=== PATIENT | male | born 1950 | race Caucasian/White ===

== ENCOUNTER 2017-03-26 08:55 | Emergency (ER) | payer MEDICARE, BC, OTHER ==
[~2017-03-26 08:55] MED LIST: ASPI-482 PO; CHOL10002 PO; INSU100I13 SQ; INSU100I17 SQ; ISOS30TA PO; ISOS60TA2 PO; LIPITOR80 MG PO; METO25TA9 PO; PANT40TA3 PO; RANO500T2 PO
[2017-03-26 09:03] VITALS: BP 174/92
[2017-03-26] MEDS: DIPHTH,PERTUSS(ACELL),TET TOX 0.5 ML DISP.SYRIN. VAX IM ONE (09:16)
--- NOTE | 2017-03-26 09:16 | PHYS DOC ---
General Chief Complaint: LACERATION/AVULSION Stated Complaint: LACERATION LFT THUMB Time Seen by MD: 09:03 Source: patient Exam Limitations: no limitations Problems: History of Present Illness Initial Comments Pt is 66/M to ED c/o left thumb laceration. 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 Bled profusely initially, stopped with pressure on ED arrival. No numbness/tingling/ weakness/radiating sx, full motion of affected thumb. Td status unknown. Pain controlled. Onset: just prior to arrival Severity: mild Pain/Injury Location: left thumb Method of Injury: incised Modifying Factors: worse with jarring, worse with movement, improves with rest Allergies: Coded Allergies: No Known Drug Allergies (Unverified , 06/24/14) Past Medical History Medical History: diabetes, heart disease Surgical History: noncontributory (stents) Social History Smoker: non-smoker Alcohol: none Drugs: none Review of Systems Constitutional: denies chills, denies fever Respiratory: denies cough, denies shortness of breath Cardiovascular: denies chest pain, denies palpitations Gastrointestinal: denies nausea, denies vomiting Musculoskeletal: see HPI Skin: see HPI Psychiatric/Neurological: see HPI Physical Exam General Appearance: WD/WN, no apparent distress HEENT: normal ENT inspection Neck: non-tender, supple Cardiovascular/Respiratory: normal peripheral pulses, no respiratory distress Hand: soft tissue tenderness (L Thumb: dorsal aspect proximal phalanx 1cm superficial clean linear laceration with edges approximated but do separate with thumb flexion. Ligs/tendons intact digit is NV intact) Neurologic/Tendon: normal sensation, normal motor functions, normal tendon functions, responds to pain, no evidence tendon injury Psychiatric: alert, oriented x 3 Skin: warm/dry (thumb lac as above) Laceration/Wound Repair Laceration/Wound Repair : Wound Location: upper extremity (L thumb) Wound's Depth, Shape: superficial, linear Wound Length (cm): 1 Wound Explored: clean Irrigated w/ Saline (ccs): 250 Betadine Prep?: Yes Wound Repaired With: Dermabond Sterile Dressing Applied?: Yes Splint Applied?: Yes Type of Splint Applied: metal finger Progress Wound cleansed by RN. After drying, edges approximated with tissue adhesive good result. Sterile dressing/metal finger splint applied. Tolerated well no complications. See departure for wound care. Departure Time of Disposition: 09:13 Disposition: 01 HOME, SELF-CARE Diagnosis: Thumb Laceration Condition: IMPROVED Patient Instructions: Tissue Adhesive Wound Care, VIS, Tetanus, Diphtheria (Td) ; Tetanus, Diphtheria, Pertussis (Tdap) - CDC Additional Instructions: Keep wound dry for 48 hours. Keep covered with sterile dressing until completely healed. After 48 hours wash briefly with soap and warm water twice daily, change dressing. Use metal finger splint for at least the first 5 days to keep thumb immobilized and prevent wound dehiscence. Follow up with a doctor next week as needed. Return to ED with new or changing symptoms. PATTIE MARTINI DO March 26, 2017 09:16
== END 2017-03-26 09:36 | disposition home or self-care (01) ==
LOC: ER 08:55
DX: S61.012A Laceration without foreign body of left thumb without damage to nail, initial encounter (principal); W34.09XA Accidental discharge from other specified firearms, initial encounter; Y93.89 Activity, other specified; Y99.8 Other external cause status; Y92.89 Other specified places as the place of occurrence of the external cause; E11.9 Type 2 diabetes mellitus without complications
CPT/HCPCS: 12001; 90471; 90715; 99283-25

== ENCOUNTER → 2017-06-26 | Outpatient (CLI) | payer MEDICARE, BC, OTHER ==
[2017-06-26 13:24] LABS: ALBUMIN 2.8 g/dL (3.4-5.0); ALBUMIN/GLOBULIN RATIO 0.6 (1.0-1.7); CALCIUM 8.4 mg/dL (8.5-10.1); CREATININE 1.8 mg/dL (0.7-1.3); GFR 37.8; POTASSIUM 4.8 mmol/L (3.5-5.1); TOTAL BILIRUBIN 0.5 mg/dL (0.2-1.0); TOTAL PROTEIN 7.4 g/dL (6.4-8.2)
[2017-06-27 05:09] LABS: HEMOGLOBIN A1C 10.4 % (4.8-5.6)
== END | disposition home or self-care (01) ==
LOC: LAB 08:13
PROVIDERS: ATTEND Nurse Practitioner
DX: E78.5 Hyperlipidemia, unspecified (principal)
CPT/HCPCS: 36415; 80053; 80061; 83036

== ENCOUNTER → 2017-12-21 | Outpatient (CLI) | payer MEDICARE, BC, OTHER ==
[~2017-12-21] MED LIST changes: +METO-239 PO; -METO25TA9 PO
[2017-12-21 10:57] LABS: ALBUMIN 2.6 g/dL (3.4-5.0); ALBUMIN/GLOBULIN RATIO 0.5 (1.0-1.7); CALCIUM 8.7 mg/dL (8.5-10.1); CREATININE 1.6 mg/dL (0.7-1.3); GFR 43.2; POTASSIUM 4.7 mmol/L (3.5-5.1); TOTAL BILIRUBIN 0.5 mg/dL (0.2-1.0); TOTAL PROTEIN 7.4 g/dL (6.4-8.2)
== END | disposition home or self-care (01) ==
LOC: LAB 10:09
PROVIDERS: ATTEND Nurse Practitioner
DX: E78.5 Hyperlipidemia, unspecified (principal); I11.0 Hypertensive heart disease with heart failure; I50.9 Heart failure, unspecified
CPT/HCPCS: 36415; 80053; 80061

== ENCOUNTER 2018-05-17 09:49 | Emergency (ER) | payer MEDICARE, BC, OTHER ==
[~2018-05-17] VITALS: Ht 175.3 cm; Wt 93.0 kg
--- NOTE | 2018-05-17 10:03 | EKG ---
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
[2018-05-17] MEDS ORDERED: ASPIRIN 81 MG TAB.CHEW PO ONE (10:15)
[2018-05-17] MEDS ORDERED: NITROGLYCERIN PREMIX 250 ML IV ONE (10:15)
--- NOTE | 2018-05-17 10:16 | RAD ---
Examination: Single frontal view of the chest HISTORY: History of chest pain COMPARISON: 04/22/2016 FINDINGS: Low lung volumes and technique accentuates heart size and pulmonary vascularity. Left-sided cardiac pacer is identified.There is no acute infiltrate or visualized pneumothorax. IMPRESSION: No acute cardiopulmonary findings. Electronically signed by: Demetrio Baker MD (05/17/2018 10:13 AM) [id number]
[2018-05-17 10:31] LABS: BASO % 1 % (0-3); EOS # 0.5 x10^3/uL (0.0-0.7); EOS % 7 % (0-3); HEMATOCRIT 40.2 % (39.0-53.0); HEMOGLOBIN 13.5 g/dL (13.0-17.5); LYMPH # 1.5 x10^3/uL (1.0-4.8); LYMPH % 23 % (24-48); MEAN CORPUSCULAR HEMOGLOBIN 30 pg (25-35); MEAN CORPUSCULAR HGB CONC 34 g/dL (31-37); MEAN CORPUSCULAR VOLUME 89 fL (79-100); MONO # 0.4 x10^3/uL (0.0-1.1); MONO % 7 % (0-9); NEUT # 4.1 x10^3uL (1.8-7.7); NEUT % 62 % (31-73); PLATELET COUNT 175 x10^3/uL (140-400); RED BLOOD COUNT 4.53 x10^6/uL (4.30-5.70); RED CELL DISTRIBUTION WIDTH 14.1 % (11.5-14.5); WHITE BLOOD COUNT 6.5 x10^3/uL (4.0-11.0)
[2018-05-17] MEDS ORDERED: NITROGLYCERIN SUBLINGUAL 0.4 MG BOTTLE OF 25. SL ONE (10:45)
[2018-05-17 11:13] LABS: ALBUMIN 2.7 g/dL (3.4-5.0); ALBUMIN/GLOBULIN RATIO 0.5 (1.0-1.7); CALCIUM 8.8 mg/dL (8.5-10.1); CREATININE 1.6 mg/dL (0.7-1.3); GFR 43.2; MAGNESIUM 2.1 mg/dL (1.8-2.4); POTASSIUM 4.2 mmol/L (3.5-5.1); TOTAL BILIRUBIN 0.5 mg/dL (0.2-1.0); TOTAL PROTEIN 7.7 g/dL (6.4-8.2)
--- NOTE | 2018-05-17 11:54 | PHYS DOC ---
Past History Past Medical History: Diabetes, High Cholesterol, Heart Disease, Hypertension, [place] Past Surgical History: Pacemaker Smoking: Non-smoker Alcohol Use: None Drug Use: None Adult General Chief Complaint Chief Complaint: CHEST PAIN HPI HPI 67-year-old male patient with history of coronary artery disease and stent placement, diabetes, hypertension and dyslipidemia states he woke up at his usual time at 8 AM today and had right shoulder and upper chest pain as a constant aching pain with radiation to his back and associated with diaphoresis , palpitation, dizziness, nausea and several episodes of vomiting. Patient states he took one nitroglycerin and his pain improved but he still had nausea and vomiting that last for about 2 hours and resolved at arrival to ER. Patient states he had the same pain and presentation with his previous heart attack. Review of Systems Review of Systems Constitutional: Denies fever or chills [] Eyes: Denies change in visual acuity, redness, or eye pain [] HENT: Denies nasal congestion or sore throat [] Respiratory: Denies cough or shortness of breath [] Cardiovascular: No additional information not addressed in HPI [] GI: Denies abdominal pain, bloody stools or diarrhea, reports nausea and vomiting [] : Denies dysuria or hematuria [] Musculoskeletal: Denies back pain or joint pain [] Integument: Denies rash or skin lesions [] Neurologic: Denies headache, focal weakness or sensory changes [] Endocrine: Denies polyuria or polydipsia [] All other systems were reviewed and found to be within normal limits, except as documented in this note. Current Medications Current Medications Current Medications Medications (Trade) Dose Ordered Sig/[facility] Start Time Stop Time Status Last Admin Dose Admin Aspirin (Children'S Aspirin) 324 mg 1X ONCE 05/17/18 10:15 05/17/18 10:16 DC 05/17/18 10:15 324 MG Nitroglycerin (Nitrostat) 0.4 mg 1X ONCE 05/17/18 10:45 05/17/18 10:46 DC Nitroglycerin/ Dextrose 250 ml @ 3 mls/hr 1X ONCE 05/17/18 10:15 05/17/18 10:18 DC Allergies Allergies Allergies Coded Allergies Type Severity Reaction Last Updated Verified No Known Drug Allergies 06/24/14 No Physical Exam Physical Exam Constitutional: Well developed, well nourished, no acute distress, non-toxic appearance. [] HENT: Normocephalic, atraumatic, oropharynx moist Eyes: PERRLA, EOMI, conjunctiva normal, no discharge. [] Neck: Normal range of motion, no tenderness, supple, no stridor. [] Cardiovascular:Heart rate regular rhythm, no murmur [] Lungs & Thorax: Bilateral breath sounds clear to auscultation [] Abdomen: Bowel sounds normal, soft, no tenderness, no masses, no pulsatile masses. [] Skin: Warm, dry, no erythema, no rash. [] Back: No tenderness, no CVA tenderness. [] Extremities: No tenderness, no cyanosis, no clubbing, ROM intact, no edema. [] Neurologic: Alert and oriented X 3, normal motor function, normal sensory function, no focal deficits noted. [] Psychologic: Affect normal, judgement normal, mood normal. [] Current Patient Data Vital Signs Vital Signs Date Time Temp Pulse Resp B/P (MAP) Pulse Ox O2 Delivery O2 Flow Rate FiO2 05/17/18 11:03 64 157/18 (64) 05/17/18 10:32 98.1 18 100 Room Air Lab Results Laboratory Tests Test 05/17/18 10:03 White Blood Count 6.5 x10^3/uL (4.0-11.0) Red Blood Count 4.53 x10^6/uL (4.30-5.70) Hemoglobin 13.5 g/dL (13.0-17.5) Hematocrit 40.2 % (39.0-53.0) Mean Corpuscular Volume 89 fL (79-100) Mean Corpuscular Hemoglobin 30 pg (25-35) Mean Corpuscular Hemoglobin Concent 34 g/dL (31-37) Red Cell Distribution Width 14.1 % (11.5-14.5) Platelet Count 175 x10^3/uL (140-400) Neutrophils (%) (Auto) 62 % (31-73) Lymphocytes (%) (Auto) 23 % (24-48) L Monocytes (%) (Auto) 7 % (0-9) Eosinophils (%) (Auto) 7 % (0-3) H Basophils (%) (Auto) 1 % (0-3) Neutrophils # (Auto) 4.1 x10^3uL (1.8-7.7) Lymphocytes # (Auto) 1.5 x10^3/uL (1.0-4.8) Monocytes # (Auto) 0.4 x10^3/uL (0.0-1.1) Eosinophils # (Auto) 0.5 x10^3/uL (0.0-0.7) Basophils # (Auto) 0.0 x10^3/uL (0.0-0.2) Prothrombin Time 10.6 SEC (9.4-11.4) Prothrombin Time INR 1.0 (0.9-1.1) Sodium Level 140 mmol/L (136-145) Potassium Level 4.2 mmol/L (3.5-5.1) Chloride Level 105 mmol/L (98-107) Carbon Dioxide Level 27 mmol/L (21-32) Anion Gap 8 (6-14) Blood Urea Nitrogen 14 mg/dL (8-26) Creatinine 1.6 mg/dL (0.7-1.3) H Estimated GFR (Cockcroft-Gault) 43.2 BUN/Creatinine Ratio 9 (6-20) Glucose Level 201 mg/dL (70-99) H Calcium Level 8.8 mg/dL (8.5-10.1) Magnesium Level 2.1 mg/dL (1.8-2.4) Total Bilirubin 0.5 mg/dL (0.2-1.0) Aspartate Amino Transferase (AST) 25 U/L (15-37) Alanine Aminotransferase (ALT) 36 U/L (16-63) Alkaline Phosphatase 84 U/L (46-116) Creatine Kinase 98 U/L (39-308) Creatine Kinase MB (Mass) 1.8 ng/mL (0.0-3.6) Creatine Kinase MB Relative Index 1.8 % (0-4) Troponin I Quantitative 0.045 ng/mL (0-0.055) ZA-Tmz-N-Type Natriuretic Peptide 242 pg/mL (0-124) H Total Protein 7.7 g/dL (6.4-8.2) Albumin 2.7 g/dL (3.4-5.0) L Albumin/Globulin Ratio 0.5 (1.0-1.7) L Lipase 206 U/L (73-393) EKG EKG EKG interpreted by me. EKG at 07/28/90 showed normal sinus rhythm at rate of 61 , left wilson axis, poor R-wave progress in anteroseptal leads, T-wave abnormality in high lateral leads, no acute ST and T-wave abnormalities[] Radiology/Procedures Radiology/Procedures [][address] [address] IMAGING REPORT Signed PATIENT: ENE ROSA ACCOUNT: [id number] : 1950 LOCATION: ER AGE: 67 SEX: M EXAM STATUS: REG ER ORD. PHYSICIAN: LEONEL ADAMS MD REASON: chest pain PROCEDURE: PORTABLE CHEST 1V Examination: Single frontal view of the chest HISTORY: History of chest pain COMPARISON: 04/22/2016 FINDINGS: Low lung volumes and technique accentuates heart size and pulmonary vascularity. Left-sided cardiac pacer is identified.There is no acute infiltrate or visualized pneumothorax. IMPRESSION: No acute cardiopulmonary findings. Electronically signed by: Demetrio Baker MD (05/17/2018 10:13 AM) [id number] DICTATED AND SIGNED BY: DEMETRIO BAKER MD DATE: 05/17/18 1012 CC: LEONEL ADAMS MD; PCP,UNKNOWN ~ [address] [address] IMAGING REPORT Signed PATIENT: ENE ROSA ACCOUNT: [id number] : 1950 LOCATION: ER AGE: 67 SEX: M EXAM STATUS: REG ER ORD. PHYSICIAN: LEONEL ADAMS MD REASON: right-sided chest and abdominal pain PROCEDURE: ABDOMEN LTD Examination: Ultrasound abdomen limited HISTORY: History of right-sided chest, abdominal pain COMPARISON: None available FINDINGS: The pancreas is not well-visualized due to bowel gas. The right lobe of the liver measures 14.2 cm. The IVC is within normal limits dimension. The echogenicity liver grossly appears unremarkable. Multiple echogenicities identified in the proximal gallbladder near the neck of the gallbladder likely gallstones. The gallbladder wall thickness measures 2.8 mm. The common bile duct measures 3.6 mm in diameter. The right kidney measures 11.8 cm in length. IMPRESSION: 1. Multiple nonmobile cholelithiasis in the proximal gallbladder near the neck of the gallbladder. Electronically signed by: Demetrio Baker MD (05/17/2018 12:32 PM) [id number] DICTATED AND SIGNED BY: DEMETRIO BAKER MD Course & Med Decision Making Course & Med Decision Making Pertinent Labs and Imaging studies reviewed. (See chart for details) Evaluation of patient in ER showed 67-year-old male patient with complaining of right side shoulder and chest pain and nausea and vomiting and diaphoresis. Patient had unremarkable physical exam and labs at arrival to ER. Patient did not have much pain in his chest after treated with nitroglycerin 1. Gallbladder ultrasound showed cholelithiasis. 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 Dr.Jean- Cardoza accepted transfer to [facility] at 1234. Patient did not have nausea and vomiting and pain while he was in ER. Dragon Disclaimer Dragon Disclaimer This electronic medical record was generated, in whole or in part, using a voice recognition dictation system. Departure Departure: Impression: Primary Impression: Acute chest pain Additional Impressions: Uncontrolled diabetes mellitus Renal insufficiency Nausea and vomiting Cholelithiasis Disposition: 02 XF T-[facility] (At 1234 to [facility]) Referrals: PCP,UNKNOWN (PCP) Problem Qualifiers LEONEL ADAMS MD May 17, 2018 11:54
--- NOTE | 2018-05-17 12:35 | RAD ---
Examination: Ultrasound abdomen limited HISTORY: History of right-sided chest, abdominal pain COMPARISON: None available FINDINGS: The pancreas is not well-visualized due to bowel gas. The right lobe of the liver measures 14.2 cm. The IVC is within normal limits dimension. The echogenicity liver grossly appears unremarkable. Multiple echogenicities identified in the proximal gallbladder near the neck of the gallbladder likely gallstones. The gallbladder wall thickness measures 2.8 mm. The common bile duct measures 3.6 mm in diameter. The right kidney measures 11.8 cm in length. IMPRESSION: 1. Multiple nonmobile cholelithiasis in the proximal gallbladder near the neck of the gallbladder. Electronically signed by: Demetrio Baker MD (05/17/2018 12:32 PM) [id number]
[2018-05-17 12:38] VITALS: BP 129/68
== END 2018-05-17 14:45 | disposition short-term general hospital (02) ==
LOC: ER 09:49
DX: R07.89 Other chest pain (principal); M25.511 Pain in right shoulder; N28.9 Disorder of kidney and ureter, unspecified; E11.9 Type 2 diabetes mellitus without complications; K80.20 Calculus of gallbladder without cholecystitis without obstruction; E78.00 Pure hypercholesterolemia, unspecified; I11.9 Hypertensive heart disease without heart failure; I25.2 Old myocardial infarction; I25.10 Atherosclerotic heart disease of native coronary artery without angina pectoris; E78.5 Hyperlipidemia, unspecified; Z95.0 Presence of cardiac pacemaker
CPT/HCPCS: 36415; 71045; 76705; 80053; 82553; 83690; 83735; 83880; 84484; 85025; 85379; 85610; 93005; 99285-25

== ENCOUNTER → 2018-08-15 | Outpatient (CLI) | payer MEDICARE, BC, OTHER ==
[2018-08-15 08:53] LABS: ALBUMIN 2.6 g/dL (3.4-5.0); ALBUMIN/GLOBULIN RATIO 0.6 (1.0-1.7); CALCIUM 8.6 mg/dL (8.5-10.1); CREATININE 1.7 mg/dL (0.7-1.3); GFR 40.3; POTASSIUM 4.9 mmol/L (3.5-5.1); TOTAL BILIRUBIN 0.5 mg/dL (0.2-1.0); TOTAL PROTEIN 7.3 g/dL (6.4-8.2)
== END | disposition home or self-care (01) ==
LOC: LAB 08:01
PROVIDERS: ATTEND Nurse Practitioner
DX: E78.5 Hyperlipidemia, unspecified (principal)
CPT/HCPCS: 36415; 80053; 80061

== ENCOUNTER → 2019-02-18 | Outpatient (CLI) | payer MEDICARE, BC, OTHER ==
[2019-02-18 08:49] LABS: BASO # 0.1 x10^3/uL (0.0-0.2); BASO % 1 % (0-3); EOS # 0.6 x10^3/uL (0.0-0.7); EOS % 12 % (0-3); HEMOGLOBIN 12.6 g/dL (13.0-17.5); LYMPH # 1.6 x10^3/uL (1.0-4.8); LYMPH % 31 % (24-48); MEAN CORPUSCULAR HEMOGLOBIN 29 pg (25-35); MEAN CORPUSCULAR HGB CONC 33 g/dL (31-37); MEAN CORPUSCULAR VOLUME 88 fL (79-100); MONO # 0.4 x10^3/uL (0.0-1.1); MONO % 9 % (0-9); NEUT # 2.5 x10^3uL (1.8-7.7); NEUT % 48 % (31-73); PLATELET COUNT 153 x10^3/uL (140-400); RED BLOOD COUNT 4.34 x10^6/uL (4.30-5.70); RED CELL DISTRIBUTION WIDTH 14.2 % (11.5-14.5); WHITE BLOOD COUNT 5.2 x10^3/uL (4.0-11.0)
[2019-02-18 09:03] LABS: ALBUMIN 2.7 g/dL (3.4-5.0); CALCIUM 8.6 mg/dL (8.5-10.1); CREATININE 1.8 mg/dL (0.7-1.3); GFR 37.6; POTASSIUM 4.3 mmol/L (3.5-5.1)
[2019-02-18 09:16] LABS: PHOSPHORUS 2.9 mg/dL (2.6-4.7)
[2019-02-19 10:12] LABS: CALCIUM PTH 8.4 mg/dL (8.6-10.2); CREATININE PTH 1.67 mg/dL (0.76-1.27); PTH INTACT 81 pg/mL (15-65)
== END | disposition home or self-care (01) ==
LOC: LAB 08:02
PROVIDERS: ATTEND Internal Medicine Nephrology
DX: I13.0 Hypertensive heart and chronic kidney disease with heart failure and stage 1 through stage 4 chronic kidney disease, or unspecified chronic kidney disease (principal); E11.22 Type 2 diabetes mellitus with diabetic chronic kidney disease; N18.3 Chronic kidney disease, stage 3 (moderate); I50.9 Heart failure, unspecified; Z68.30 Body mass index [BMI] 30.0-30.9, adult
CPT/HCPCS: 36415; 80053; 80061; 80069; 83970; 85025

== ENCOUNTER → 2019-02-18 | Outpatient (CLI) | payer MEDICARE, BC, OTHER ==
[2019-02-18 09:00] LABS: ALBUMIN 2.7 g/dL (3.4-5.0); ALBUMIN/GLOBULIN RATIO 0.6 (1.0-1.7); CALCIUM 8.6 mg/dL (8.5-10.1); CREATININE 1.8 mg/dL (0.7-1.3); GFR 37.6; POTASSIUM 4.3 mmol/L (3.5-5.1); TOTAL BILIRUBIN 0.5 mg/dL (0.2-1.0); TOTAL PROTEIN 7.4 g/dL (6.4-8.2)
== END | disposition home or self-care (01) ==
LOC: LAB 07:56
PROVIDERS: ATTEND Nurse Practitioner
DX: E78.5 Hyperlipidemia, unspecified (principal)
CPT/HCPCS: 36415; 80053; 80061

== ENCOUNTER → 2019-08-27 | Outpatient (CLI) | payer MEDICARE, BC, OTHER ==
[2019-08-27 10:04] LABS: BASO % 1 % (0-3); EOS # 0.3 x10^3/uL (0.0-0.7); EOS % 7 % (0-3); HEMATOCRIT 34.2 % (39.0-53.0); HEMOGLOBIN 11.2 g/dL (13.0-17.5); LYMPH # 1.6 x10^3/uL (1.0-4.8); LYMPH % 30 % (24-48); MEAN CORPUSCULAR HEMOGLOBIN 30 pg (25-35); MEAN CORPUSCULAR HGB CONC 33 g/dL (31-37); MEAN CORPUSCULAR VOLUME 91 fL (79-100); MONO # 0.4 x10^3/uL (0.0-1.1); MONO % 8 % (0-9); NEUT # 2.8 x10^3uL (1.8-7.7); NEUT % 55 % (31-73); PLATELET COUNT 128 x10^3/uL (140-400); RED BLOOD COUNT 3.77 x10^6/uL (4.30-5.70); RED CELL DISTRIBUTION WIDTH 14.6 % (11.5-14.5); WHITE BLOOD COUNT 5.2 x10^3/uL (4.0-11.0)
[2019-08-27 10:13] LABS: ALBUMIN 2.6 g/dL (3.4-5.0); CALCIUM 8.8 mg/dL (8.5-10.1); CREATININE 2.6 mg/dL (0.7-1.3); GFR 24.6; PHOSPHORUS 4.1 mg/dL (2.6-4.7); POTASSIUM 3.8 mmol/L (3.5-5.1)
[2019-08-28 05:08] LABS: CALCIUM PTH 8.9 mg/dL (8.6-10.2); CREATININE PTH 2.52 mg/dL (0.76-1.27); PTH INTACT 159 pg/mL (15-65)
== END | disposition home or self-care (01) ==
LOC: LAB 09:16
PROVIDERS: ATTEND Nurse Practitioner Family
DX: I12.9 Hypertensive chronic kidney disease with stage 1 through stage 4 chronic kidney disease, or unspecified chronic kidney disease (principal); E11.22 Type 2 diabetes mellitus with diabetic chronic kidney disease; N18.3 Chronic kidney disease, stage 3 (moderate); N28.1 Cyst of kidney, acquired; Z68.29 Body mass index [BMI] 29.0-29.9, adult
CPT/HCPCS: 36415; 80069; 82306; 83970; 85025

== ENCOUNTER → 2019-09-16 | Outpatient (CLI) | payer MEDICARE, BC, OTHER ==
[2019-09-16 10:11] LABS: ALBUMIN 2.5 g/dL (3.4-5.0); CALCIUM 8.4 mg/dL (8.5-10.1); CREATININE 2.3 mg/dL (0.7-1.3); GFR 28.3; PHOSPHORUS 3.2 mg/dL (2.6-4.7); POTASSIUM 4.6 mmol/L (3.5-5.1)
== END | disposition home or self-care (01) ==
LOC: LAB 09:18
PROVIDERS: ATTEND Internal Medicine Nephrology
DX: I12.9 Hypertensive chronic kidney disease with stage 1 through stage 4 chronic kidney disease, or unspecified chronic kidney disease (principal); E11.22 Type 2 diabetes mellitus with diabetic chronic kidney disease; N18.4 Chronic kidney disease, stage 4 (severe); Z68.25 Body mass index [BMI] 25.0-25.9, adult
CPT/HCPCS: 36415; 80069; 82570; 84156

== ENCOUNTER → 2019-10-25 | Outpatient (CLI) | payer MEDICARE, BC, OTHER ==
[2019-10-25 09:30] LABS: ALBUMIN 2.6 g/dL (3.4-5.0); CALCIUM 8.6 mg/dL (8.5-10.1); GFR 33.3; PHOSPHORUS 3.6 mg/dL (2.6-4.7); POTASSIUM 4.5 mmol/L (3.5-5.1)
== END | disposition home or self-care (01) ==
LOC: LAB 08:46
PROVIDERS: ATTEND Family Medicine
DX: I12.9 Hypertensive chronic kidney disease with stage 1 through stage 4 chronic kidney disease, or unspecified chronic kidney disease (principal); E11.22 Type 2 diabetes mellitus with diabetic chronic kidney disease; N18.4 Chronic kidney disease, stage 4 (severe); D63.1 Anemia in chronic kidney disease; Z79.4 Long term (current) use of insulin
CPT/HCPCS: 36415; 80069

== ENCOUNTER → 2020-01-15 | Outpatient (CLI) | payer MEDICARE, BC, OTHER ==
[2020-01-15 09:41] LABS: BASO % 1 % (0-3); EOS # 0.4 x10^3/uL (0.0-0.7); EOS % 7 % (0-3); HEMATOCRIT 35.3 % (39.0-53.0); HEMOGLOBIN 11.5 g/dL (13.0-17.5); LYMPH # 1.4 x10^3/uL (1.0-4.8); LYMPH % 26 % (24-48); MEAN CORPUSCULAR HEMOGLOBIN 30 pg (25-35); MEAN CORPUSCULAR HGB CONC 33 g/dL (31-37); MEAN CORPUSCULAR VOLUME 90 fL (79-100); MONO # 0.4 x10^3/uL (0.0-1.1); MONO % 8 % (0-9); NEUT # 3.1 x10^3uL (1.8-7.7); NEUT % 59 % (31-73); PLATELET COUNT 171 x10^3/uL (140-400); RED BLOOD COUNT 3.91 x10^6/uL (4.30-5.70); RED CELL DISTRIBUTION WIDTH 13.2 % (11.5-14.5); WHITE BLOOD COUNT 5.3 x10^3/uL (4.0-11.0)
[2020-01-15 09:43] LABS: ALBUMIN 2.6 g/dL (3.4-5.0); CALCIUM 8.5 mg/dL (8.5-10.1); CREATININE 1.8 mg/dL (0.7-1.3); GFR 37.5; MAGNESIUM 2.1 mg/dL (1.8-2.4); PHOSPHORUS 3.3 mg/dL (2.6-4.7); POTASSIUM 4.4 mmol/L (3.5-5.1); URIC ACID 7.4 mg/dL (3.5-7.2)
[2020-01-15 20:07] LABS: CALCIUM PTH 8.6 mg/dL (8.6-10.2); CREATININE PTH 1.83 mg/dL (0.76-1.27); PTH INTACT 103 pg/mL (15-65)
== END | disposition home or self-care (01) ==
LOC: LAB 08:26
PROVIDERS: ATTEND Family Medicine
DX: I12.9 Hypertensive chronic kidney disease with stage 1 through stage 4 chronic kidney disease, or unspecified chronic kidney disease (principal); E11.22 Type 2 diabetes mellitus with diabetic chronic kidney disease; N18.4 Chronic kidney disease, stage 4 (severe); D63.1 Anemia in chronic kidney disease; Z79.4 Long term (current) use of insulin
CPT/HCPCS: 36415; 80069; 83540; 83550; 83735; 83970; 84550; 85025

== ENCOUNTER → 2020-01-15 | Outpatient (CLI) | payer MEDICARE, BC, OTHER ==
[2020-01-15 09:46] LABS: ALBUMIN 2.6 g/dL (3.4-5.0); ALBUMIN/GLOBULIN RATIO 0.5 (1.0-1.7); CALCIUM 8.6 mg/dL (8.5-10.1); CREATININE 1.9 mg/dL (0.7-1.3); GFR 35.2; POTASSIUM 4.4 mmol/L (3.5-5.1); TOTAL BILIRUBIN 0.5 mg/dL (0.2-1.0); TOTAL PROTEIN 7.4 g/dL (6.4-8.2)
== END | disposition home or self-care (01) ==
LOC: LAB 08:21
PROVIDERS: ATTEND Nurse Practitioner
DX: E78.5 Hyperlipidemia, unspecified (principal)
CPT/HCPCS: 36415; 80053; 80061

== ENCOUNTER → 2020-04-20 | Outpatient (CLI) | payer MEDICARE, BC, OTHER ==
[2020-04-20 10:26] LABS: MAGNESIUM 2.4 mg/dL (1.8-2.4); POTASSIUM 4.1 mmol/L (3.5-5.1)
== END ==
LOC: LAB 08:24
PROVIDERS: ATTEND Internal Medicine Cardiovascular Disease
DX: I49.3 Ventricular premature depolarization (principal); I10 Essential (primary) hypertension
CPT/HCPCS: 36415; 83735; 84132; 84443

== ENCOUNTER → 2020-06-22 | Outpatient (CLI) | payer MEDICARE, BC, OTHER ==
[2020-06-22 10:21] LABS: BASO # 0.1 x10^3/uL (0.0-0.2); BASO % 1 % (0-3); EOS # 0.4 x10^3/uL (0.0-0.7); EOS % 7 % (0-3); HEMATOCRIT 34.1 % (39.0-53.0); HEMOGLOBIN 11.5 g/dL (13.0-17.5); LYMPH # 1.6 x10^3/uL (1.0-4.8); LYMPH % 30 % (24-48); MEAN CORPUSCULAR HEMOGLOBIN 30 pg (25-35); MEAN CORPUSCULAR HGB CONC 34 g/dL (31-37); MEAN CORPUSCULAR VOLUME 89 fL (79-100); MONO # 0.4 x10^3/uL (0.0-1.1); MONO % 8 % (0-9); NEUT # 2.9 x10^3uL (1.8-7.7); NEUT % 55 % (31-73); PLATELET COUNT 174 x10^3/uL (140-400); RED BLOOD COUNT 3.82 x10^6/uL (4.30-5.70); RED CELL DISTRIBUTION WIDTH 14.2 % (11.5-14.5); WHITE BLOOD COUNT 5.4 x10^3/uL (4.0-11.0)
[2020-06-22 10:29] LABS: ALBUMIN 2.5 g/dL (3.4-5.0); CALCIUM 8.5 mg/dL (8.5-10.1); CREATININE 2.4 mg/dL (0.7-1.3); GFR 26.9; MAGNESIUM 2.3 mg/dL (1.8-2.4); PHOSPHORUS 3.5 mg/dL (2.6-4.7); POTASSIUM 4.1 mmol/L (3.5-5.1)
[2020-06-22 18:30] LABS: CREATININE,RANDOM URINE 163.6 mg/dL (Not Establ.)
[2020-06-22 21:06] LABS: CALCIUM PTH 8.5 mg/dL (8.6-10.2); PTH INTACT 103 pg/mL (15-65)
== END | disposition home or self-care (01) ==
LOC: LAB 08:17
PROVIDERS: ATTEND Internal Medicine Nephrology
DX: D63.1 Anemia in chronic kidney disease (principal); N28.1 Cyst of kidney, acquired; I12.9 Hypertensive chronic kidney disease with stage 1 through stage 4 chronic kidney disease, or unspecified chronic kidney disease; N18.3 Chronic kidney disease, stage 3 (moderate); E11.22 Type 2 diabetes mellitus with diabetic chronic kidney disease
CPT/HCPCS: 36415; 80069; 82570; 83735; 83970; 84156; 85025

== ENCOUNTER → 2020-07-29 | Outpatient (CLI) | payer MEDICARE, BC, OTHER ==
[2020-07-29 10:50] LABS: ALBUMIN 2.4 g/dL (3.4-5.0); CALCIUM 8.4 mg/dL (8.5-10.1); CREATININE 2.1 mg/dL (0.7-1.3); GFR 31.4; PHOSPHORUS 3.3 mg/dL (2.6-4.7); POTASSIUM 4.6 mmol/L (3.5-5.1)
== END | disposition home or self-care (01) ==
LOC: LAB 08:47
PROVIDERS: ATTEND Family Medicine
DX: E11.22 Type 2 diabetes mellitus with diabetic chronic kidney disease (principal); I12.9 Hypertensive chronic kidney disease with stage 1 through stage 4 chronic kidney disease, or unspecified chronic kidney disease; D63.1 Anemia in chronic kidney disease; N18.4 Chronic kidney disease, stage 4 (severe); Z68.27 Body mass index [BMI] 27.0-27.9, adult; Z79.4 Long term (current) use of insulin
CPT/HCPCS: 36415; 80069

== ENCOUNTER → 2020-07-29 | Outpatient (CLI) | payer MEDICARE, BC, OTHER ==
[2020-07-29 10:50] LABS: ALBUMIN 2.4 g/dL (3.4-5.0); ALBUMIN/GLOBULIN RATIO 0.5 (1.0-1.7); CALCIUM 8.5 mg/dL (8.5-10.1); GFR 33.2; TOTAL BILIRUBIN 0.5 mg/dL (0.2-1.0); TOTAL PROTEIN 7.4 g/dL (6.4-8.2)
[2020-07-29 10:53] LABS: POTASSIUM 4.7 mmol/L (3.5-5.1)
[2020-07-30 02:07] LABS: HEMOGLOBIN A1C 7.2 % (4.8-5.6)
== END | disposition home or self-care (01) ==
LOC: LAB 08:42
PROVIDERS: ATTEND Nurse Practitioner
DX: E11.22 Type 2 diabetes mellitus with diabetic chronic kidney disease (principal)
CPT/HCPCS: 36415; 80053; 80061; 83036

== ENCOUNTER → 2020-09-25 | Outpatient (CLI) | payer MEDICARE, BC, OTHER ==
[2020-09-25 16:11] LABS: CALCIUM 8.8 mg/dL (8.5-10.1); CREATININE 2.1 mg/dL (0.7-1.3); GFR 31.4; POTASSIUM 4.3 mmol/L (3.5-5.1)
== END ==
LOC: LAB 14:38
PROVIDERS: ATTEND Nurse Practitioner
DX: I50.22 Chronic systolic (congestive) heart failure (principal)
CPT/HCPCS: 36415; 80048; 83880

== ENCOUNTER → 2020-11-18 | Outpatient (CLI) | payer MEDICARE, BC, OTHER ==
[2020-11-18 10:34] LABS: BASO % 1 % (0-3); EOS # 0.6 x10^3/uL (0.0-0.7); EOS % 9 % (0-3); HEMATOCRIT 32.6 % (39.0-53.0); HEMOGLOBIN 10.7 g/dL (13.0-17.5); LYMPH # 1.2 x10^3/uL (1.0-4.8); LYMPH % 19 % (24-48); MEAN CORPUSCULAR HEMOGLOBIN 29 pg (25-35); MEAN CORPUSCULAR HGB CONC 33 g/dL (31-37); MEAN CORPUSCULAR VOLUME 88 fL (79-100); MONO # 0.4 x10^3/uL (0.0-1.1); MONO % 6 % (0-9); NEUT # 4.2 x10^3uL (1.8-7.7); NEUT % 65 % (31-73); PLATELET COUNT 155 x10^3/uL (140-400); RED BLOOD COUNT 3.72 x10^6/uL (4.30-5.70); RED CELL DISTRIBUTION WIDTH 14.5 % (11.5-14.5); WHITE BLOOD COUNT 6.5 x10^3/uL (4.0-11.0)
[2020-11-18 10:42] LABS: ALBUMIN 2.4 g/dL (3.4-5.0); CALCIUM 8.9 mg/dL (8.5-10.1); CREATININE 1.9 mg/dL (0.7-1.3); GFR 35.2; MAGNESIUM 1.9 mg/dL (1.8-2.4); PHOSPHORUS 3.4 mg/dL (2.6-4.7); POTASSIUM 4.2 mmol/L (3.5-5.1); URIC ACID 7.3 mg/dL (3.5-7.2)
[2020-11-18 23:08] LABS: CALCIUM PTH 8.9 mg/dL (8.6-10.2); CREATININE PTH 1.75 mg/dL (0.76-1.27); PTH INTACT 86 pg/mL (15-65)
== END ==
LOC: LAB 09:38
PROVIDERS: ATTEND Family Medicine
DX: I12.9 Hypertensive chronic kidney disease with stage 1 through stage 4 chronic kidney disease, or unspecified chronic kidney disease (principal); E11.22 Type 2 diabetes mellitus with diabetic chronic kidney disease; N18.4 Chronic kidney disease, stage 4 (severe); D63.1 Anemia in chronic kidney disease; Z79.4 Long term (current) use of insulin; Z68.27 Body mass index [BMI] 27.0-27.9, adult
CPT/HCPCS: 36415; 80069; 83540; 83550; 83735; 83970; 84550; 85025

== ENCOUNTER → 2021-01-06 | Outpatient (CLI) | payer MEDICARE, BC, OTHER ==
[~2021-01-06] MED LIST changes: -ISOS60TA2 PO; +ISOS60TA55 PO
[2021-01-06 12:01] LABS: BASO # 0.1 x10^3/uL (0.0-0.2); BASO % 1 % (0-3); EOS # 0.4 x10^3/uL (0.0-0.7); EOS % 8 % (0-3); HEMATOCRIT 31.3 % (39.0-53.0); HEMOGLOBIN 10.2 g/dL (13.0-17.5); LYMPH # 1.5 x10^3/uL (1.0-4.8); LYMPH % 25 % (24-48); MEAN CORPUSCULAR HEMOGLOBIN 29 pg (25-35); MEAN CORPUSCULAR HGB CONC 33 g/dL (31-37); MEAN CORPUSCULAR VOLUME 88 fL (79-100); MONO # 0.4 x10^3/uL (0.0-1.1); MONO % 7 % (0-9); NEUT # 3.5 x10^3uL (1.8-7.7); NEUT % 60 % (31-73); PLATELET COUNT 144 x10^3/uL (140-400); RED BLOOD COUNT 3.55 x10^6/uL (4.30-5.70); RED CELL DISTRIBUTION WIDTH 13.7 % (11.5-14.5); WHITE BLOOD COUNT 5.9 x10^3/uL (4.0-11.0)
[2021-01-06 12:07] LABS: ALBUMIN 2.5 g/dL (3.4-5.0); ALBUMIN/GLOBULIN RATIO 0.5 (1.0-1.7); CALCIUM 8.5 mg/dL (8.5-10.1); CREATININE 2.3 mg/dL (0.7-1.3); GFR 28.2; POTASSIUM 4.5 mmol/L (3.5-5.1); TOTAL BILIRUBIN 0.5 mg/dL (0.2-1.0); TOTAL PROTEIN 7.1 g/dL (6.4-8.2)
== END ==
LOC: LAB 11:16
PROVIDERS: ATTEND Nurse Practitioner
DX: I25.10 Atherosclerotic heart disease of native coronary artery without angina pectoris (principal)
CPT/HCPCS: 36415; 80053; 85025

== ENCOUNTER → 2021-01-18 | Outpatient (CLI) | payer MEDICARE, BC, OTHER ==
[2021-01-18 11:26] LABS: BASO % 1 % (0-3); CALCIUM 8.7 mg/dL (8.5-10.1); EOS # 0.3 x10^3/uL (0.0-0.7); EOS % 7 % (0-3); GFR 33.1; HEMATOCRIT 31.3 % (39.0-53.0); HEMOGLOBIN 10.4 g/dL (13.0-17.5); LYMPH # 1.5 x10^3/uL (1.0-4.8); LYMPH % 30 % (24-48); MEAN CORPUSCULAR HEMOGLOBIN 29 pg (25-35); MEAN CORPUSCULAR HGB CONC 33 g/dL (31-37); MEAN CORPUSCULAR VOLUME 88 fL (79-100); MONO # 0.4 x10^3/uL (0.0-1.1); MONO % 8 % (0-9); NEUT # 2.7 x10^3uL (1.8-7.7); NEUT % 55 % (31-73); PLATELET COUNT 161 x10^3/uL (140-400); POTASSIUM 4.7 mmol/L (3.5-5.1); RED BLOOD COUNT 3.56 x10^6/uL (4.30-5.70); RED CELL DISTRIBUTION WIDTH 14.4 % (11.5-14.5)
== END ==
LOC: LAB 10:28
PROVIDERS: ATTEND Internal Medicine
DX: Z01.812 Encounter for preprocedural laboratory examination (principal); I25.10 Atherosclerotic heart disease of native coronary artery without angina pectoris
CPT/HCPCS: 36415; 80048; 85025; 85610

== ENCOUNTER → 2021-01-25 | Outpatient (CLI) | payer MEDICARE, BC, OTHER ==
[2021-01-25 11:56] LABS: ALBUMIN 2.4 g/dL (3.4-5.0); CALCIUM 8.7 mg/dL (8.5-10.1); CREATININE 2.1 mg/dL (0.7-1.3); GFR 31.3; MAGNESIUM 2.1 mg/dL (1.8-2.4); PHOSPHORUS 3.5 mg/dL (2.6-4.7); POTASSIUM 4.6 mmol/L (3.5-5.1); URIC ACID 8.4 mg/dL (3.5-7.2)
[2021-01-25 12:00] LABS: BASO % 1 % (0-3); EOS # 0.3 x10^3/uL (0.0-0.7); EOS % 6 % (0-3); HEMATOCRIT 29.3 % (39.0-53.0); HEMOGLOBIN 9.8 g/dL (13.0-17.5); LYMPH # 1.2 x10^3/uL (1.0-4.8); LYMPH % 24 % (24-48); MEAN CORPUSCULAR HEMOGLOBIN 30 pg (25-35); MEAN CORPUSCULAR HGB CONC 33 g/dL (31-37); MEAN CORPUSCULAR VOLUME 89 fL (79-100); MONO # 0.4 x10^3/uL (0.0-1.1); MONO % 7 % (0-9); NEUT # 3.2 x10^3uL (1.8-7.7); NEUT % 62 % (31-73); PLATELET COUNT 145 x10^3/uL (140-400); RED CELL DISTRIBUTION WIDTH 14.7 % (11.5-14.5); WHITE BLOOD COUNT 5.1 x10^3/uL (4.0-11.0)
[2021-01-25 17:09] LABS: CALCIUM PTH 8.5 mg/dL (8.6-10.2); CREATININE PTH 1.93 mg/dL (0.76-1.27); PTH INTACT 94 pg/mL (15-65)
== END ==
LOC: LAB 10:04
PROVIDERS: ATTEND Nurse Practitioner Family
DX: I12.9 Hypertensive chronic kidney disease with stage 1 through stage 4 chronic kidney disease, or unspecified chronic kidney disease (principal); N18.4 Chronic kidney disease, stage 4 (severe); E11.22 Type 2 diabetes mellitus with diabetic chronic kidney disease; D63.1 Anemia in chronic kidney disease; Z79.4 Long term (current) use of insulin; Z68.27 Body mass index [BMI] 27.0-27.9, adult
CPT/HCPCS: 36415; 80069; 83540; 83550; 83735; 83970; 84550; 85025